=== PATIENT | male | born 1995 | race American Indian/Alaskan Native ===

== ENCOUNTER 2017-02-17 07:50 | Emergency (ER) | payer OTHER ==
[2017-02-17 07:57] VITALS: BP 139/84
--- NOTE | 2017-02-17 08:28 | Emergency Department Report ---
HPI - General Chief Complaint: Pain General Time Seen by Provider: 02/17/17 08:22 - HPI HPI: 21 y/o male complain of anal pain x 2 days .pt state that pain sharp and feel as if something is hanging from his buttock.pt state that the pain is intermittent non radiating and worsen when trying to have a bowel movement .pt denies any rectal bleeding .pt state pain current 0/10 at present .pt denies any abdominal or penile pain .pt denies any prior treatment . ED Past Medical Hx - Past Medical History Previous Medical History?: No - Surgical History Past Surgical History?: No - Social History Smoking Status: Never Smoker Substance Use Type: Other - Medications Home Medications: Home Medications Medication Instructions Recorded Confirmed Last Taken Type Hydrocortisone [Anucort-HC SUPPOS] 25 mg RC BID #10 supp.rect 02/17/17 Unknown Rx ED Review of Systems ROS: Stated complaint: ANAL PAIN Other details as noted in HPI Constitutional: denies: chills, fever Eyes: denies: eye pain, eye discharge, vision change ENT: denies: ear pain, throat pain Respiratory: denies: cough, shortness of breath, wheezing Cardiovascular: denies: chest pain, palpitations Endocrine: no symptoms reported Gastrointestinal: denies: abdominal pain, nausea, diarrhea Genitourinary: denies: urgency, dysuria Musculoskeletal: denies: back pain, joint swelling, arthralgia Skin: denies: rash, lesions Neurological: denies: headache, weakness, paresthesias Psychiatric: denies: anxiety, depression Hematological/Lymphatic: denies: easy bleeding, easy bruising Other: rectal pain Physical Exam - Physical Exam Vital Signs: Vital Signs 02/17/17 07:52 Temperature 97.9 F Pulse Rate 81 Respiratory 18 Rate Blood Pressure 139/84 O2 Sat by Pulse 99 Oximetry Physical Exam: GENERAL: The patient is well-developed and well-nourished. Patient is in NAD. HENT: Normocephalic. Atraumatic. Patient has moist mucous membranes. Throat: No erythema, swelling or exudates. Ears:Tympanic membranes pearly galvez ,intact , and free of exudate and erythema . EYES: Extraocular motions are intact, PERRL NECK: Supple. No meningitic signs are noted. There is no adenopathy noted. CHEST/LUNGS: Clear to auscultation bilaterally. No wheezing, rales or rhonchi noted. There is no respiratory distress noted. HEART/CARDIOVASCULAR: Regular rate and rhythm. Normal S1 S2. No murmurs, rubs , clicks, or gallops. ABDOMEN: Abdomen is soft, nontender.. Bowel sounds normoactive. There is no abdominal distention. Negative rebound tenderness. : Hemorrhoid tag noted to the rectum SKIN: There is no rash. There is no edema. There is no diaphoresis.Normal skin turgor NEURO: The patient is A&Ox3. The patient has no focal neurologic deficits. MUSCULOSKELETAL: There is no tenderness or deformity. There is no limitation range of motion. posture erect.Spine aligned,no deformities. PSYCH: Pt has appropriate mood and affect. ED Course Vital Signs 02/17/17 07:52 Temperature 97.9 F Pulse Rate 81 Respiratory 18 Rate Blood Pressure 139/84 O2 Sat by Pulse 99 Oximetry ED Medical Decision Making - Medical Decision Making Hemorrhoid per examination will treat the pt with anusol Critical care attestation.: If time is entered above; I have spent that time in minutes in the direct care of this critically ill patient, excluding procedure time. ED Disposition Clinical Impression: External hemorrhoid Disposition: DISCHARGED TO HOME OR SELFCARE Is pt being admited?: No Does the pt Need Aspirin: No Condition: Stable Instructions: Hemorrhoids (ED) Additional Instructions: cold pack applied to anal area hot sitz bath in tub for 20-30 minute twice a day Prescriptions: Hydrocortisone [Anucort-HC SUPPOS] 25 mg RC BID #10 supp.rect Referrals: PRIMARY CARE, [Primary Care Provider] - 3-5 Days Forms: Work/School Release Form(ED) Time of Disposition: 08:35
== END 2017-02-17 08:42 | disposition home or self-care (01) ==
LOC: ED 07:50
DX: K64.4 Residual hemorrhoidal skin tags (principal)
CPT/HCPCS: 99282